=== PATIENT | male | born 1990 | race Caucasian/White ===

== ENCOUNTER 2021-07-30 13:13 | Emergency (ER) | payer BC, SELFPAY ==
[2021-07-30] VITALS (15 sets, daily range): BP systolic 112–142; BP diastolic 69–98; PULSE 72–102; RESP 18–20; TEMP 36.8–36.9; O2SAT 95–99; BMI 28.8
--- NOTE | 2021-07-30 13:54 | [facility].EDGENADL ---
ED Disposition Clinical Impression: Pneumonia due to COVID-19 virus Disposition: Home, Self-Care Condition on Discharge: Fair Instructions: DI for COVID-19 (Suspected or Confirmed ) Additional Instructions: COVID-19 Isolation: Isolate yourself for a MINIMUM of 10 days: What to do: Monitor your symptoms. If you have an emergency warning sign (including trouble breathing), seek emergency medical care immediately. Stay in a separate room from other household members, if possible. Use a separate bathroom, if possible. Avoid contact with other members of the household and pets. Don?t share personal household items, like cups, towels, and utensils. Wear a mask when around other people if able. You can be around others AFTER: 10 days since symptoms first appeared AND 24 hours with no fever without the use of fever-reducing medications AND Other symptoms of COVID-19 are improving Referrals: Dino An [Primary Care Provider] - - Critical Care Critical Care Time: No Attestation: On 07/30/21, the high probability of a clinically significant, sudden or life threatening deterioration of the following system(s) required my full and direct attention, intervention and personal management. The time I documented below is in addition to time spent performing reported procedures but includes the following listed in this critical care notation. Medical Decision Making - Dick Inquiry Pt receiving controlled substance: No Vital Signs: 07/30/21 13:14 07/30/21 14:00 07/30/21 14:15 Temperature 98.4 F Temperature Source Oral Pulse Rate 96 H 84 Pulse Rate [Right Radial] 102 H Respiratory Rate 20 Blood Pressure 129/85 122/89 Blood Pressure [Right Arm] 119/69 Blood Pressure Mean [Right Arm] 85 Blood Pressure Source [Right Arm] Automatic Cuff Blood Pressure Position [Right Arm] Sitting 02 Sat by Pulse Oximetry 96 96 96 Oxygen Delivery Method Room Air - Lab Data Lab Results 07/30/21 14:40: WBC 5.7, RBC 5.27, Hgb 15.6, Hct 47.9, MCV 90.9, MCH 29.6, MCHC 32.5, RDW 13.3, Plt Count 206, MPV 8.9, Neut % (Auto) 69.5, Lymph % (Auto) 23.9, [place] % (Auto) 5.8, Eos % (Auto) 0.1, Baso % (Auto) 0.8, Neut # (Auto) 4.0, Lymph # (Auto) 1.4, [place] # (Auto) 0.3, Eos # (Auto) 0.0, Baso # (Auto) 0.0 07/30/21 14:40: Sodium 140, Potassium 3.9, Chloride 102, Carbon Dioxide 28, Anion Gap 13.9, BUN 13, Creatinine 0.90, Estimated Creat Clear 145, Estimated GFR 98, Est GFR ( Amer) 119, Glucose 97, Calcium 8.5, Total Bilirubin 0.4, AST 29, ALT 17, Alkaline Phosphatase 84, Total Protein 7.3, Albumin 4.0, Globulin 3.3 H, Albumin/Globulin Ratio 1.2 07/30/21 14:40: Lactate 0.8 07/30/21 14:40: SARS-CoV-2 (PCR) Detected A, Influenza A Untype (PCR) Not detected, Influenza Type B (PCR) Not detected Result diagrams: 07/30/21 14:40 07/30/21 14:40 Orders (Tests/Meds): ED MEDICATIONS Discontinued Medications Generic Name Dose Route Start Last Admin Trade Name Freq PRN Reason Stop Dose Admin Iopamidol 70 ml 07/30/21 15:11 07/30/21 15:12 Iopamidol-370 (76%);100ml Bottle IV 07/30/21 15:12 70 ml ONCE ONE Administration Sodium Chloride 40 ml 07/30/21 15:11 07/30/21 15:12 0.9 % Sodium Chloride 50 Ml Vial IV 07/30/21 15:12 40 ml ONCE ONE Administration Sodium Chloride 10 ml 07/30/21 15:11 07/30/21 15:12 Sodium Chloride 0.9% 10ml Syr (Rad Only) IV 07/30/21 15:12 10 ml ONCE ONE Administration ORDERS Category Date Time Status Blood Culture Stat Micro 07/30/21 14:40 Received - Radiology Data #1 Image(s): Chest Image Reviewed: Yes I reviewed the patient's radiology image, Yes I have reviewed radiologist's interpretation PROCEDURE: XR CHEST PORTABLE CLINICAL HISTORY: soa, covid 19 COMPARISON: No exams were available for comparison FINDINGS: The cardiomediastinal silhouette and pulmonary vascularity are within normal limits. Patchy density is pr
--- NOTE | 2021-07-30 14:04 | XR_ITS ---
PROCEDURE: XR CHEST PORTABLE CLINICAL HISTORY: soa, covid 19 COMPARISON: No exams were available for comparison FINDINGS: The cardiomediastinal silhouette and pulmonary vascularity are within normal limits. Patchy density is present in the right lung base and right mid to lower lung zone laterally suspicious for ground-glass infiltrates seen with Covid19 pneumonia. Upper lobes are clear. No effusions. Nodular opacity in the left midlung which may be due to overlapping vessel. Follow-up may confirm. No acute bony abnormalities. IMPRESSION: Patchy density is present in the right lung base and right mid to lower lung zone laterally suspicious for ground-glass infiltrates seen with Covid19 pneumonia Dictated by: Chandrakant Chaudhry MD 07/30/2021 14:34 Chandrakant Chaudhry MD in [facility] 07/30/2021 14:34
--- NOTE | 2021-07-30 14:06 | CT_ITS ---
PROCEDURE: CT ANGIO CHEST PE PROTOCOL CLINCIAL INDICATION: soa, covid 19 Covid19 positive COMPARISON: No exams were available for comparison TECHNIQUE: IV Contrast: 70ML Isovue 370 Axial images obtained with sagittal and coronal reformats. All CT scans at the facility use one or more dose reduction, viz: automated exposure control, ma/kV adjustment per patient size (including targeted exams where dose is matched to indication, i.e. head), or iterative reconstruction technique. FINDINGS: HEART AND MEDIASTINAL STRUCTURES: No evidence of pulmonary embolus, aortic aneurysm, or aortic dissection. LUNGS AND PLEURAL SPACES: There are scattered peripheral areas of ground-glass opacity with consolidation in the lower lobes posteriorly consistent with Covid19 pneumonia. No effusions. BONY STRUCTURES: No acute bony abnormalities apparent. UPPER ABDOMEN: Unremarkable. ADDITIONAL FINDINGS: No other significant abnormalities. IMPRESSION: No evidence of pulmonary embolus. Covid19 pneumonia Dictated by: Chandrakant Chaudhry MD 07/30/2021 15:31 Chandrakant Chaudhry MD in [facility] 07/30/2021 15:31
[2021-07-30 14:57] LABS: Chloride 102 mmol/L (98-107); Influenza A, PCR Not Detected (NotDetected); Influenza B, PCR Not Detected (NotDetected)
[2021-07-30 14:58] LABS: Potassium 3.9 mmoL/L (3.5-5.1); Sodium 140 mmol/L (136-145)
[2021-07-30 15:00] LABS: Alanine Aminotransferase 17 U/L (12-78); Aspartate Amino Transferase 29 U/L (17-59); Blood Urea Nitrogen 13 mg/dl (9-20); Creatinine Clearance Estimated 145 mL/min (50-200); Estimated Glomerular Filt Rate 98 ml/min (>60); GFR (African American) 119 ML/MIN (>60)
[2021-07-30 15:01] LABS: Albumin/Globulin Ratio 1.2 (1.1-1.8); Alkaline Phosphatase 84 U/L (38-126); Anion Gap 13.9 mEq/L (5-15); Bilirubin,Total 0.4 mg/dl (0.2-1.3); Calcium 8.5 mg/dl (8.4-10.2); Carbon Dioxide 28 mmol/L (22.0-30.0); Globulin 3.3 g/dL (1.3-3.2); Glucose 97 mg/dl (74-100); Lactic Acid 0.8 mmol/L (0.7-2.1); Total Protein,Serum 7.3 g/dl (6.3-8.2)
[2021-07-30 15:04] LABS: Basophils % 0.8 % (0.1-2.0); Eosinophils % 0.1 % (0.1-12.0); Hematocrit 47.9 % (42.0-52.0); Hemoglobin 15.6 g/dL (14.1-18.0); Lymphocytes # 1.4 K/mm3 (0.7-4.5); Lymphocytes % 23.9 % (10-50); Mean Corpuscular HGB Conc 32.5 g/dL (31.8-35.4); Mean Corpuscular Hemoglobin 29.6 pg (27.0-31.2); Mean Corpuscular Volume 90.9 fl (80-94); Mean Platelet Volume 8.9 fl (7.4-10.4); Monocytes # 0.3 K/mm3 (0.1-1.0); Monocytes % 5.8 % (1.7-9.3); Neutrophils % 69.5 % (37.0-80.0); Platelet Count 206 K/mm3 (142-424); Red Blood Count 5.27 M/mm3 (4.60-6.20); Red Cell Distribution Width 13.3 % (11.5-17.5); White Blood Count 5.7 K/mm3 (4.8-10.8)
--- NOTE | 2021-07-30 15:05 | PC.NURSE ---
Pt to rad
[2021-07-30 15:27] LABS: Coronavirus 19, PCR Detected (NotDetected)
== END 2021-07-30 18:19 | disposition home or self-care (01) ==
PROVIDERS: Emergency Provider Emergency Medicine; PCP Family Medicine
DX: U07.1 COVID-19 (principal); J12.82 Pneumonia due to coronavirus disease 2019
CPT/HCPCS: 71045; 71275; 80053; 83605; 85025; 87040; 96365; 99284; C9803; Q9967; U0003; U0005